=== PATIENT | female | born 1990 | race Caucasian/White ===

== ENCOUNTER 2016-08-08 13:43 | Outpatient (CLI) | payer OTHER ==
[2016-08-08 15:28] VITALS: BP 125/73; PULSE 79; RESP 16; TEMP 96.3
== END 2016-08-08 15:15 | disposition home or self-care (01) ==
LOC: MERGE 13:43 → FBPOP 13:43
PROVIDERS: ATTEND Obstetrics & Gynecology
DX: O47.1 False labor at or after 37 completed weeks of gestation (principal); Z3A.38 38 weeks gestation of pregnancy
CPT/HCPCS: 59025; 99213

== ENCOUNTER → 2016-10-13 | Outpatient (CLI) | payer OTHER ==
[2016-10-13 14:34] LABS: Basophils % (A) 1 %; CH 29.4; Eosinophils # (A) 0.2 k/uL (0-0.7); Eosinophils % (A) 3 %; HCT 39.2 % (34.0-46.0); HDW 2.33; HGB 13.1 gm/dL (11.4-16.0); Luc # (Auto) 0.12; Luc % (Auto) 2; Lymphocytes # (A) 2.1 k/uL (1.0-4.8); Lymphocytes % (A) 36 %; MCH 29.8 pg (25.0-35.0); MCHC 33.4 g/dL (31.0-37.0); MCV 89.4 fL (80.0-100.0); Mean Platelet Volume 7.6; Monocytes # (A) 0.3 k/uL (0-1.0); Monocytes % (A) 5 %; Neutrophils # (A) 3.1 k/uL (1.3-7.7); Neutrophils % (A) 53 %; RBC 4.39 m/uL (3.80-5.40); WBC 5.9 k/uL (3.8-10.6); WBC (Perox) 5.76
== END | disposition home or self-care (01) ==
LOC: LABPAT 14:02
PROVIDERS: ATTEND Obstetrics & Gynecology
DX: Z01.812 Encounter for preprocedural laboratory examination (principal); Z64.1 Problems related to multiparity
CPT/HCPCS: 85025

== ENCOUNTER 2016-10-26 08:06 | Day surgery (SDC) | payer OTHER ==
[2016-10-21 09:34] VITALS: BMI 26.2
[~2016-10-26 08:06] MED LIST: DEXAMETHASONE SOD PHOSPHATE 10 MG/ML 1 ML VIAL IV ONE; FAMOTIDINE 20 MG/2 ML VIAL IV PRN; LACTATED RINGERS 1,000 ML IV SCH; LIDOCAINE 1% 20 ML VIAL (10MG/ML) FOR IV START INTRADERMA PRN; MIDAZOLAM 2 MG/2 ML VIAL IV PRN; Pre Op ABX Message 1 EACH MISC MISCELLANE ONE; SCOPOLAMINE 1.5MG/72HR PATCH TRANSDERM ONE
[2016-10-26] MEDS ORDERED: ONDANSETRON 4 MG/2 ML VIAL ONE (08:57)
[2016-10-26] MEDS ORDERED: KETOROLAC 30 MG/ML 1 ML VIAL ONE (08:57)
[2016-10-26] MEDS ORDERED: GLYCOPYRROLATE 0.2 MG/ML 2 ML VIAL ONE (08:57)
[2016-10-26] MEDS ORDERED: fentaNYL (PF) 50 MCG/ML 2 ML AMP ONE (08:57)
[2016-10-26] MEDS ORDERED: LIDOCAINE 1% INJ 10MG/ML (20 ML MDV) ONE (08:57)
[2016-10-26] MEDS ORDERED: NEOSTIGMINE 1 MG/ML 10 ML VIAL ONE (08:57)
[2016-10-26] MEDS ORDERED: SUCCINYLCHOLINE CHLORIDE 100 MG/5 ML SYR IV ONE (08:57)
[2016-10-26] MEDS ORDERED: MIDAZOLAM 2 MG/2 ML VIAL ONE (08:57)
[2016-10-26] MEDS ORDERED: ROCURONIUM BROMIDE 10 MG/ML 10 ML VIAL IV ONE (08:57)
[2016-10-26] MEDS ORDERED: PROPOFOL 10 MG/ML 20 ML VIAL IV ONE (08:57)
--- NOTE | 2016-10-26 09:32 | P.OP ---
Date of Procedure: 10/26/16 Preoperative Diagnosis: Undesired fertility Postoperative Diagnosis: Normal-appearing anatomy Procedure(s) Performed: Laparoscopic tubal ligation with Filshie clips Implants: Anesthesia: JANIEA Surgeon: Ashlyn Salinas Estimated Blood Loss (ml): 10 IV fluids (ml): 200 Urine output (ml): 25 Pathology: none sent Condition: stable Disposition: PACU Indications for Procedure: Operative Findings: Description of Procedure: Patient is brought to the operating suite where a general anesthetic is administered without difficulty. She is placed in the dorsal lithotomy position. The cervix vagina perineum and abdomen are all prepped and draped in usual sterile fashion. The appropriate timeout is performed to assure proper patient and procedural identification. Urine hCG is negative. Antibiotics are not deemed necessary. Examination under anesthesia reveals a small anteverted uterus with negative adnexa bilaterally. Speculum was placed into the vagina and the anterior lip of the cervix is grasped with a double-tooth tenaculum. The acorn cannula is placed onto the cervix and attached to the tenaculum. Speculum is removed. Bladder is drained for approximately 25 mL of clear yellow urine. At this time attention is drawn to the abdomen. A small infraumbilical incision is made. The Veress needle was placed and the placement was checked with hanging drop technique. The abdomen is insufflated under low filling pressures to approximate 4 L of CO2 gas. The Veress needle is removed. The trochars placed and the placement is atraumatic. A second incision is made suprapubically and a second trocar is placed under direct visualization. Again placement is atraumatic. Patient is now placed in Trendelenburg position. The uterus is firm below positioned in the anteverted lateral position. The right fallopian tube is visualized in its entirety to the fimbriated end. The Filshie clip is placed in the isthmic portion of the tube with care to traverse the entire diameter of the tube into the mesal salpinx. The same procedure is carried out on the left or contralateral tube. Care again is taken to traverse the entire diameter of the tube into the mesal salpinx. Bilateral ovaries are inspected and noted to be normal. The pelvis is then examined, no evidence of endometriosis, uterine fibroids, adhesive disease or any other anomalies. The CO2 gas was allowed to diffuse. The incisions are inspected upon removing the trochars and these are clean and dry. 4-0 undyed Vicryl issues in a subcuticular manner to close the skin incisions. Steri-Strips and Mastisol are applied to the wounds. The wounds are injected with a total of 10 mL of cord percent Marcaine to aid in analgesia. Toradol is given prior to leaving the operative suite. All sponge needle and enhancement counts are correct. Patient is brought back to the recovery room in stable condition with vital signs including pulse of 53, blood pressure 103/66. Patient will follow-up with me in the office in 2 weeks.
[2016-10-26] MEDS ORDERED: BUPIVACAIN-EPI 0.25%-1:200,000 30 ML VIAL SQ ONE (09:34)
[2016-10-26 09:52] VITALS: TEMP 97
[2016-10-26] MEDS: HYDROmorphone 1 MG/ML 1 ML SYRINGE IVP PRN ×2 (10:06→10:11)
[2016-10-26 10:40] VITALS: RESP 18
[2016-10-26] MEDS ORDERED: METOCLOPRAMIDE 5 MG/ML 2 ML VIAL IVP ONE (11:00)
[2016-10-26 11:56] VITALS: BP 101/70; PULSE 61
== END 2016-10-26 11:57 | disposition home or self-care (01) ==
LOC: OR 08:06 → MERGE 09:50 → OR 11:57
PROVIDERS: ATTEND Obstetrics & Gynecology
DX: Z30.2 Encounter for sterilization (principal); Z91.030 Bee allergy status; Z91.040 Latex allergy status
CPT/HCPCS: 81025; 58671; J2250; J1100; J2710; J2765; J2405; J2001; J3010; J1885; J1170; J0330; J2704

== ENCOUNTER → 2017-06-08 | Outpatient (CLI) | payer OTHER ==
--- NOTE | 2017-06-08 16:18 | XR ---
Limited cervical spine HISTORY: An 56.2, neck pain 3 views of the cervical spine Cervical vertebral bodies show preserved height and bone mineralization. Disc spaces are maintained. Minimal anterolisthesis grade 1 C3-4, C4-5 I suspect is physiologic. IMPRESSION: No acute fracture or subluxation. Additional findings above. No significant degenerative changes, consider cervical spine MRI.
== END | disposition home or self-care (01) ==
LOC: RADXRMAIN 13:40
PROVIDERS: ATTEND Family Medicine
DX: M54.2 Cervicalgia (principal)
CPT/HCPCS: 72040

== ENCOUNTER → 2017-06-16 | Outpatient (CLI) | payer OTHER ==
--- NOTE | 2017-06-16 09:56 | MR ---
EXAMINATION TYPE: MR cervical spine wo con DATE OF EXAM: 06/16/2017 7:49 AM COMPARISON: NONE HISTORY: Neck and skull pain Multiplanar MultiSpin echo imaging of the cervical spine was performed. Comparison: none C2-C3: No evidence for degenerative disc disease. No disc bulge/herniation or protrusion. No Canal stenosis. Foramina are patent bilaterally. C3-C4: No evidence for degenerative disc disease. No disc bulge/herniation or protrusion. No Canal stenosis. Foramina are patent bilaterally. C4-C5: No evidence for degenerative disc disease. No disc bulge/herniation or protrusion. No Canal stenosis. Foramina are patent bilaterally. C5-C6: No evidence for degenerative disc disease. No disc bulge/herniation or protrusion. No Canal stenosis. Foramina are patent bilaterally. C6-C7: No evidence for degenerative disc disease. No disc bulge/herniation or protrusion. No Canal stenosis. Foramina are patent bilaterally. C7-T1: No evidence for degenerative disc disease. No disc bulge/herniation or protrusion. No Canal stenosis. Foramina are patent bilaterally. Cervical segments are intact. There is normal alignment. Cervical spinal cord is of normal signal. Craniovertebral junction relationships are within normal limits. IMPRESSION: 1. Normal examination of the cervical spine.
== END | disposition home or self-care (01) ==
LOC: RADMRIMAIN 07:15
PROVIDERS: ATTEND Family Medicine
DX: M54.12 Radiculopathy, cervical region (principal)
CPT/HCPCS: 72141

== ENCOUNTER → 2019-03-08 | Outpatient (CLI) | payer OTHER ==
--- NOTE | 2019-03-08 16:03 | FL ---
EXAMINATION TYPE: FL hysterosalpingography DATE OF EXAM: 03/08/2019 COMPARISON: NONE HISTORY: History of tubal ligation. Ensure tubal closure. TECHNIQUE: 43 seconds of fluoroscopy time was utilized with 10 images saved. Informed consent was obtained and all the patient's questions were answered. Preprocedural timeout w as performed. Preliminary film of the pelvis reveals no distinct abnormality. A speculum was introduced and the external cervical os was localize. The external cervical os was cl eansed and a Betadine solution on 3 occasions. Hysterosalpingography catheter was introduced into th e uterus and balloon insufflation device deployed. Approximately 15 cc of nonionic contrast (Isovue- 370) was injected in a retrograde manner. The uterus has a normal size shape and appearance. No persistent uterine filling defects are seen. Both fallopian tubes display closure devices and contrast fills the proximal fallopian tubes to the c losure device is again not beyond the posterior device is. Venous filling of contrast is subsequently seen. IMPRESSION: No fallopian tube contrast beyond the closure devices. Tubal closure is confirmed.
== END | disposition home or self-care (01) ==
LOC: RADUSWWP 13:42
PROVIDERS: ATTEND Obstetrics & Gynecology
DX: Z48.89 Encounter for other specified surgical aftercare (principal); Z98.51 Tubal ligation status
CPT/HCPCS: 58340; 74740

== ENCOUNTER 2019-07-15 16:04 | Emergency (ER) | payer OTHER ==
[2019-07-15 16:14] VITALS: TEMP 99.2
--- NOTE | 2019-07-15 16:25 | ED ---
Psych HPI - General Chief Complaint: Psychiatric Symptoms Stated Complaint: Petition Time Seen by Provider: 07/15/19 16:14 Source: patient, police, RN notes reviewed Mode of arrival: ambulatory Limitations: no limitations - History of Present Illness Initial Comments: This a 28-year-old female presents emergency department for psychiatric. Region. Patient had argument with her fianc at home. Patient states she became very upset she states she did threaten to kill herself. Patient states at this time she does not feel suicidal states she never intended to harm himself but she did make these threats. Patient states that she has a history of bipolar disorder history of cutting. Patient denies any illicit drug use or alcohol abuse no physical complaints. She does currently see psychiatrist and is on multiple medications. - Related Data Home Medications Medication Instructions Recorded Confirmed Albuterol Inhaler [Ventolin Hfa 2 puff INHALATION RT-Q6H PRN 07/15/19 07/15/19 Inhaler] Butalb/Acetaminophen/Caffeine 1 tab PO DIRECTED PRN 07/15/19 07/15/19 [Fioricet 50-325-40] Cyclobenzaprine [Flexeril] 5 mg PO BID 07/15/19 07/15/19 Dextroamphetamine/Amphetamine 30 mg PO QAM 07/15/19 07/15/19 [Adderall Xr] EPINEPHrine (Auto Inject) [Epipen] 0.3 mg IM ONCE PRN 07/15/19 07/15/19 Ergocalciferol [Vitamin D2 1 cap PO Q7D 07/15/19 07/15/19 (DRISDOL)] Ferrous Sulfate [Feosol] 325 mg PO DAILY 07/15/19 07/15/19 Gabapentin [Neurontin] 100 mg PO TID 07/15/19 07/15/19 HYDROcodone/APAP 5-325MG [[place] 1 tab PO BID PRN 07/15/19 07/15/19 5-325] Mirtazapine (Unknown Dose) 1 tab PO DAILY 07/15/19 07/15/19 Vitamin B Complex 1 cap PO DAILY 07/15/19 07/15/19 hydrOXYzine PAMOATE [Vistaril] 25 mg PO TID 07/15/19 07/15/19 Allergies Allergy/AdvReac Type Severity Reaction Status Date / Time Latex, Natural Rubber Allergy Mild Rash/Hives Verified 07/15/19 17:42 Review of Systems ROS Statement: Those systems with pertinent positive or pertinent negative responses have been documented in the HPI. ROS Other: All systems not noted in ROS Statement are negative. Past Medical History Past Medical History: Asthma History of Any Multi-Drug Resistant Organisms: None Reported Past Surgical History: Tubal Ligation Additional Past Surgical History / Comment(s): wisdom teeth-18 yr/old Past Anesthesia/Blood Transfusion Reactions: No Reported Reaction Past Psychological History: ADD/ADHD, Anxiety, Bipolar, Depression, PTSD Smoking Status: Never smoker Past Alcohol Use History: None Reported Past Drug Use History: None Reported - Past Family History Mother Family Medical History: Osteoarthritis (OA) General Exam Limitations: no limitations General appearance: alert, in no apparent distress Head exam: Present: atraumatic, normocephalic, normal inspection Eye exam: Present: normal appearance, PERRL, EOMI. Absent: scleral icterus, conjunctival injection, periorbital swelling ENT exam: Present: normal exam, normal oropharynx, mucous membranes moist Neck exam: Present: normal inspection, full ROM. Absent: tenderness, meningismus, lymphadenopathy Respiratory exam: Present: normal lung sounds bilaterally. Absent: respiratory distress, wheezes, rales, rhonchi, stridor Cardiovascular Exam: Present: regular rate (Patient was tachycardic at triage though on exam within normal limits.), normal rhythm, normal heart sounds. Absent: systolic murmur, diastolic murmur, rubs, gallop, clicks GI/Abdominal exam: Present: soft, normal bowel sounds. Absent: distended, tenderness, guarding, rebound, rigid Neurological exam: Present: alert, oriented X3 Psychiatric exam: Present: depressed, flat affect Skin exam: Present: warm, dry, intact, normal color. Absent: rash Course Vital Signs 07/15/19 07/15/19 16:06 18:33 Temperature 99.2 F Pulse Rate 115 H 20 L Respiratory 18 104 H Rate Blood Pressure 117/78 118/75 O2 Sat by Pulse 97 98 Oximetry Medical Decision Making - Medical Decision Making 28 show female presented for psychiatric evaluation patient evaluated by EPS and case discussed with psychiatrist recommends outpatient treatment. Patient's case discussed with family including sister and grandmother who states that she does have a safe place to go home to that she'll be monitored closely and return for any worsening symptoms. - Lab Data Lab Results 07/15/19 Range/Units 16:59 Urine Opiates Screen Detected H (NotDetected) Ur Oxycodone Screen Not Detected (NotDetected) Urine Methadone Screen Not Detected (NotDetected) Ur Propoxyphene Screen Not Detected (NotDetected) Ur Barbiturates Screen Not Detected (NotDetected) U Tricyclic Antidepress Not Detected (NotDetected) Ur Phencyclidine Scrn Not Detected (NotDetected) Ur Amphetamines Screen Detected H (NotDetected) U Methamphetamines Scrn Not Detected (NotDetected) U Benzodiazepines Scrn Detected H (NotDetected) Urine Cocaine Screen Not Detected (NotDetected) U Marijuana (THC) Screen Not Detected (NotDetected) Disposition Clinical Impression: Depression Disposition: HOME SELF-CARE Condition: Stable Instructions (If sedation given, give patient instructions): Depression (ED) Additional Instructions: Please return to the Emergency Department if symptoms worsen or any other concerns. Is patient prescribed a controlled substance at d/c from ED?: No Referrals: Aly Fall MD [Primary Care Provider] - 1-2 days Time of Disposition: 18:44
[2019-07-15 17:31] LABS: Amphetamine Screen,Urine Detected (NotDetected); Barbiturate Screen,Urine Not Detected (NotDetected); Benzodiazepines Screen,Urine Detected (NotDetected); Cocaine Screen,Urine Not Detected (NotDetected); Methadone Screen, Urine Not Detected (NotDetected); Opiate Screen,Urine Detected (NotDetected); Oxycodone Screen, Urine Not Detected (NotDetected); Phencyclidine Screen,Urine Not Detected (NotDetected); Tricyclic Antidepressant,Urine Not Detected (NotDetected); Urn Cannabinoid Scrn Not Detected (NotDetected)
[2019-07-15 18:34] VITALS: BP 118/75; PULSE 20; RESP 104
== END 2019-07-15 18:56 | disposition home or self-care (01) ==
LOC: EC 16:04
DX: F32.9 Major depressive disorder, single episode, unspecified (principal); J45.909 Unspecified asthma, uncomplicated; F90.9 Attention-deficit hyperactivity disorder, unspecified type; F41.9 Anxiety disorder, unspecified; F43.10 Post-traumatic stress disorder, unspecified; Z79.899 Other long term (current) drug therapy; Z91.040 Latex allergy status
CPT/HCPCS: 80306; 82075; 99285

== ENCOUNTER → 2021-11-25 | Outpatient (CLI) | payer OTHER ==
--- NOTE | 2021-11-26 16:37 | MR ---
EXAMINATION TYPE: MR knee LT wo con DATE OF EXAM: 11/25/2021 COMPARISON: None HISTORY: Left knee pain. TECHNIQUE: Multiplanar, multisequence imaging of the left knee is performed without IV contrast. FINDINGS: MEDIAL MENISCUS: Anterior and posterior horns are intact without tear. LATERAL MENISCUS: Anterior and posterior horns are intact without tear. CRUCIATE LIGAMENTS: The anterior and posterior cruciate ligaments are intact and unremarkable. COLLATERAL LIGAMENTS: The medial collateral is intact and unremarkable. The lateral collateral ligame nt complex is increased signal at the femoral attachment of the lateral collateral ligament proper. T he ligament is however intact. EXTENSOR MECHANISM: Visualized quadriceps and patellar tendons are intact. EFFUSION: No significant suprapatellar joint effusion. POPLITEAL CYST: Small popliteal fossa Forde's cyst mass TRICOMPARTMENT SPACES: No significant joint space narrowing. CARTILAGE: Minimal tricompartmental cartilage loss. No full-thickness defects. BONE MARROW SIGNAL: No focal abnormal marrow signal is appreciated. OTHER: No additional significant abnormality is appreciated. IMPRESSION: 1. Low-grade lateral collateral ligament sprain at the femoral attachment. 2. The menisci are intact. 3. ACL and PCL intact.
== END | disposition home or self-care (01) ==
LOC: RADMRIMAIN 19:12
PROVIDERS: ATTEND Orthopaedic Surgery
DX: S83.422A Sprain of lateral collateral ligament of left knee, initial encounter (principal); Y99.9 Unspecified external cause status

== ENCOUNTER → 2022-04-01 | Outpatient (CLI) | payer OTHER ==
--- NOTE | 2022-04-02 10:00 | XR ---
EXAMINATION TYPE: XR ribs LT, 4 views DATE OF EXAM: 04/01/2022 COMPARISON: NONE HISTORY: 31-year-old female left side posterior and anterior rib pain, no injury. M94.0 CHONDROCOSTAL JUNCTION SYNDROME [TIETZE] FINDINGS: Lungs appear clear without pneumothorax or pleural effusion. No acute or healing left fracture is see n. Slight dextroconvex undulation along the lower thoracic spine. IMPRESSION: 1. No displaced left rib fracture seen. 2. Slight dextroconvex undulation of the lower thoracic spine which may positional. Correlate with ph ysical exam findings to exclude a subtle scoliosis.
== END | disposition home or self-care (01) ==
LOC: RADXRMAIN 12:22
PROVIDERS: ATTEND Nurse Practitioner Acute Care
DX: M94.0 Chondrocostal junction syndrome [Tietze] (principal)